=== PATIENT | male | born 1980 | race Two or more races ===

== ENCOUNTER 2022-06-01 11:52 | Inpatient (IN) | payer MEDICAID, OTHER ==
[~2022-06-01] VITALS: Ht 167.6 cm; Wt 103.7 kg
[2022-06-01] MEDS ORDERED: ONDANSETRON HCL 4 MG/2 ML VIAL IV ONE (12:15)
[2022-06-01] MEDS ORDERED: SODIUM CHLORIDE 0.9% 1,000 ML IVB ONE ×2 (12:15→15:00)
[2022-06-01] MEDS ORDERED: PANTOPRAZOLE 40 MG/10 ML VIAL INJ IV ONE (12:15)
[2022-06-01 12:37] LABS: Basophils # (auto) 0.1 10 ^3/uL (0-0.2); Basophils % (auto) 0.7 % (0.0-2.0); Eosinophils # (auto) 0 10 ^3/uL (0-0.8); Eosinophils % (auto) 0.1 % (0.0-7.0)
[2022-06-01 12:39] LABS: Hematocrit 53.3 % (41.0-53.0); Lymphocytes # (auto) 2.7 10 ^3/uL (0.4-5.4); Lymphocytes % (auto) 22.4 % (10.0-50.0); Mean Corpuscular Hgb Conc. 33.8 g/dL (32.0-36.0); Mean Corpuscular Volume 91.7 fL (80.0-100.0); Monocytes % (auto) 8.4 % (0.0-12.0); Neutrophils # (auto) 8.2 10 ^3/uL (1.6-8.6); Neutrophils % (auto) 68.4 % (37.0-80.0); Nucleated Red Blood Cells % 0.1 %; Red Blood Cells 5.81 10^6/uL (4.5-5.90); Red Cell Distribution Width 13.6 % (11.8-14.3)
[2022-06-01 12:52] LABS: INR 0.97 (0.9-1.15); Partial Thromboplastin Time 25.4 sec (24.6-33.4)
[2022-06-01 12:57] LABS: Albumin 3.7 g/dL (3.4-5.0); BUN/Creatinine Ratio 14.1; Calcium 8.4 mg/dL (8.5-10.1); Potassium 3.6 mmol/L (3.5-5.1)
[2022-06-01 12:59] LABS: Bilirubin, Total 0.8 mg/dL (0.2-1.0); Total Protein 7.6 g/dL (6.4-8.2)
[2022-06-01] MEDS ORDERED: ONDANSETRON HCL 4 MG/2 ML VIAL IV PRN (15:00)
[2022-06-01] MEDS ORDERED: MORPHINE SULFATE INJ 2 MG/ml SYRG IV PRN (15:00)
[2022-06-01] MEDS ORDERED: MULTIPLE VITAMIN TAB PO ONE (15:00)
[2022-06-01] MEDS ORDERED: NITROGLYCERIN 0.4 MG SL TAB SL PRN (15:00)
[2022-06-01] MEDS ORDERED: LORazepam 2MG/ML-1ML VIAL IV ONE (15:00)
[2022-06-01] MEDS ORDERED: SODIUM CHLORIDE 0.9% 1,000 ML IV ONE (15:00)
[2022-06-01] MEDS ORDERED: FOLIC ACID 1 MG TAB PO ONE (15:00)
[2022-06-01] MEDS ORDERED: LORazepam 2MG/ML-1ML VIAL IV PRN (15:00)
[2022-06-01] MEDS ORDERED: DEXTROSE (50%) 50ML SYRG IV PRN (15:00)
[2022-06-01] MEDS ORDERED: THIAMINE 100mg/ml INJ (200mg/2ml VIAL) IV ONE (15:00)
[2022-06-01] MEDS ORDERED: LACTULOSE 20Gm/30ML SOLN PO PRN (15:00)
[2022-06-01] MEDS: chlordiazePOXIDE HCL 25 MG CAP PO SCH ×2 (15:44→22:30)
[2022-06-01 17:30] LABS: Cholesterol 267 mg/dL (< 200); Triglycerides 457 mg/dL (< 150)
[2022-06-01 17:32] LABS: HDL Cholesterol 43 mg/dL (40-59)
[2022-06-01 17:52] LABS: Amylase 109 U/L (25-115); Lipase 254 U/L (73-393)
[2022-06-01] MEDS: ACCU-CHEK COMFORT CURVE STRIP VI SCH (18:11)
[2022-06-01] MEDS: InsuLIN REG 1unit/0.01ml Soln (100units/ml) SC SCH (18:41)
[2022-06-01] MEDS: LORazepam 2MG/ML-1ML VIAL IV SCH ×2 (19:37→22:30)
[2022-06-01 22:05] VITALS: BP 138/82
[2022-06-01 22:06] VITALS: BP 138/82
[2022-06-01 22:15] VITALS: BP 138/82
[2022-06-02] MEDS: InsuLIN REG 1unit/0.01ml Soln (100units/ml) SC SCH ×4 (00:40→17:30)
[2022-06-02] MEDS: LORazepam 2MG/ML-1ML VIAL IV SCH ×5 (02:55→18:27)
[2022-06-02 05:00] VITALS: BP 129/81
[2022-06-02] MEDS: ACCU-CHEK COMFORT CURVE STRIP VI SCH ×4 (06:00→17:28)
[2022-06-02 06:32] LABS: Basophils # (auto) 0.1 10 ^3/uL (0-0.2); Basophils % (auto) 0.7 % (0.0-2.0); Eosinophils # (auto) 0.1 10 ^3/uL (0-0.8); Eosinophils % (auto) 0.4 % (0.0-7.0); Hematocrit 44.1 % (41.0-53.0); Hemoglobin 15.1 g/dL (13.5-17.5); Lymphocytes % (auto) 23.5 % (10.0-50.0); Mean Corpuscular Hemoglobin 31.1 pg (28.0-32.0); Mean Corpuscular Hgb Conc. 34.2 g/dL (32.0-36.0); Mean Corpuscular Volume 90.9 fL (80.0-100.0); Monocytes # (auto) 1.3 10 ^3/uL (0-1.3); Monocytes % (auto) 10.3 % (0.0-12.0); Neutrophils # (auto) 8.2 10 ^3/uL (1.6-8.6); Neutrophils % (auto) 65.1 % (37.0-80.0); Nucleated Red Blood Cells % 0.1 %; Red Blood Cells 4.85 10^6/uL (4.5-5.90); Red Cell Distribution Width 13.4 % (11.8-14.3); White Blood Cell 12.7 10^3/uL (4.4-10.8)
[2022-06-02 06:37] LABS: BUN/Creatinine Ratio 22.2; Calcium 8.6 mg/dL (8.5-10.1); Potassium 3.4 mmol/L (3.5-5.1)
[2022-06-02] MEDS: chlordiazePOXIDE HCL 25 MG CAP PO SCH ×2 (07:18→22:52)
[2022-06-02 08:49] VITALS: BP 133/67
[2022-06-02 09:22] LABS: Albumin 3.2 g/dL (3.4-5.0); Bilirubin, Direct 0.4 mg/dL (0-0.2); Bilirubin, Total 1.4 mg/dL (0.2-1.0); Total Protein 6.3 g/dL (6.4-8.2)
[2022-06-02] MEDS: THIAMINE 100mg/ml INJ (200mg/2ml VIAL) IV SCH (11:05)
[2022-06-02] MEDS: MULTIPLE VITAMIN TAB PO SCH (11:05)
[2022-06-02] MEDS: ENOXAPARIN SOD 40 MG/0.4 ML SYRINGE SC SCH (11:05)
[2022-06-02] MEDS: FOLIC ACID 1 MG TAB PO SCH (11:06)
[2022-06-02] MEDS ORDERED: SODIUM CHLORIDE 0.9% 1,000 ML IV ONE (11:15)
[2022-06-02 12:56] VITALS: BP 132/79
[2022-06-02 16:58] VITALS: BP 138/82
[2022-06-03] MEDS: LORazepam 2MG/ML-1ML VIAL IV SCH ×3 (00:05→06:35)
[2022-06-03] MEDS: InsuLIN REG 1unit/0.01ml Soln (100units/ml) SC SCH ×5 (00:10→22:46)
[2022-06-03] MEDS: ACCU-CHEK COMFORT CURVE STRIP VI SCH ×4 (00:11→18:00)
[2022-06-03 05:00] VITALS: BP 121/68
[2022-06-03] MEDS: chlordiazePOXIDE HCL 25 MG CAP PO SCH ×2 (08:53→21:46)
[2022-06-03 09:00] VITALS: BP 151/96
[2022-06-03] MEDS: FOLIC ACID 1 MG TAB PO SCH (10:07)
[2022-06-03] MEDS: MULTIPLE VITAMIN TAB PO SCH (10:07)
[2022-06-03] MEDS: THIAMINE 100mg/ml INJ (200mg/2ml VIAL) IV SCH (10:07)
[2022-06-03] MEDS: ENOXAPARIN SOD 40 MG/0.4 ML SYRINGE SC SCH (10:08)
[2022-06-03] MEDS ORDERED: LORazepam 2MG/ML-1ML VIAL IV PRN ×2 (12:00→12:15)
[2022-06-03 13:00] VITALS: BP 149/96
[2022-06-03 17:00] VITALS: BP 135/86
[2022-06-03 22:00] VITALS: BP 143/97
[2022-06-04 05:00] VITALS: BP 133/92
[2022-06-04] MEDS: InsuLIN REG 1unit/0.01ml Soln (100units/ml) SC SCH ×2 (05:57→12:12)
[2022-06-04] MEDS: ACCU-CHEK COMFORT CURVE STRIP VI SCH ×3 (06:00→12:05)
[2022-06-04 09:00] VITALS: BP 138/92
[2022-06-04] MEDS: FOLIC ACID 1 MG TAB PO SCH (09:14)
[2022-06-04] MEDS: MULTIPLE VITAMIN TAB PO SCH (09:15)
[2022-06-04] MEDS: chlordiazePOXIDE HCL 25 MG CAP PO SCH (09:15)
[2022-06-04] MEDS: THIAMINE 100mg/ml INJ (200mg/2ml VIAL) IV SCH (09:16)
[2022-06-04] MEDS: ENOXAPARIN SOD 40 MG/0.4 ML SYRINGE SC SCH (09:16)
[2022-06-04] MEDS ORDERED: FOLI1TAB6 PO (11:23)
[2022-06-04] MEDS ORDERED: THIA100T5 PO (11:23)
[2022-06-04] MEDS ORDERED: CHL25C PO (11:23)
[2022-06-04 12:37] VITALS: BP 138/92
[2022-06-04 13:00] VITALS: BP 159/109
[2022-06-04] MEDS ORDERED: cloNIDine HCL 0.1 MG TAB PO ONE (13:15)
[2022-06-04 16:00] VITALS: BP 133/83
[2022-06-05] MEDS ORDERED: chlordiazePOXIDE HCL 25 MG CAP PO SCH (07:00)
== END 2022-06-04 15:45 | disposition home or self-care (01) | DRG 897 ==
LOC: ER 11:52 → TELE 15:05 → TELE-WESTW 21:38
PROVIDERS: ADMIT Registered Nurse; ATTEND Family Medicine
DX: F10.220 Alcohol dependence with intoxication, uncomplicated (principal); E87.20 Acidosis, unspecified; Z20.822 Contact with and (suspected) exposure to COVID-19; F10.239 Alcohol dependence with withdrawal, unspecified; K70.30 Alcoholic cirrhosis of liver without ascites; E11.9 Type 2 diabetes mellitus without complications; F17.210 Nicotine dependence, cigarettes, uncomplicated; E86.0 Dehydration; R79.89 Other specified abnormal findings of blood chemistry; I10 Essential (primary) hypertension
CPT/HCPCS: 36415; 71046; 74176; 76705; 80048; 80053; 80061; 80076; 80320; 82140; 82150; 82962; 83036; 83690; 83735; 83880; 84443; 85025; 85610; 85730; 87426; 87807; 96361; 96374; 96375; C9113; G0378; J1815; J2405